=== PATIENT | male | born 1965 | race African-American/Black ===

== ENCOUNTER 2017-11-09 12:43 | Inpatient (IN) | payer MEDICAID, SELFPAY ==
[2017-11-09] VITALS (15 sets, daily range): BP systolic 138–160; BP diastolic 81–124; PULSE 89–120; RESP 12–96; TEMP 35.7–37.2; O2SAT 93–99; BMI 34.0; BMI 34.1; BMI 33.9
--- NOTE | 2017-11-09 13:37 | CT_ITS ---
STUDY: CT ABDOMEN AND PELVIS WITHOUT CONTRAST REASON FOR EXAM: Male, 51 years old. Weakness and abdominal pain. Polyuria. RADIATION DOSAGE (If Supplied By Facility): CTDIvol = ( 21.89 ) mGy, DLP = ( 1175.58 ) mGycm TECHNIQUE: Transaxial images were obtained from the dome of the diaphragm to the symphysis pubis without oral contrast, and without intravenous contrast. Sagittal and coronal images were reconstructed. Individualized dose optimization techniques were used for this CT. COMPARISON: None. FINDINGS: Calcified granulomas in the right lower lobe. The visualized portions of the heart are within normal limits. There is decreased attenuation of the liver consistent with steatosis. Normal gallbladder and extrahepatic biliary system. There is a benign calcified granuloma of the spleen. Normal pancreas. Normal bilateral adrenal glands. Normal right kidney. Normal left kidney. Normal visualized stomach. Normal small intestine. Normal colon. The appendix is visualized and appears normal. There is scattered atherosclerotic calcification of the abdominal aorta, without a demonstrated aneurysm. Normal inferior vena cava. Normal retroperitoneum. Normal urinary bladder. There are prostatic calcifications. There is a small umbilical hernia containing fat. Normal osseous structures. CT/Abdomen/Pelvis without Cont IMPRESSION: Fatty infiltration of the liver. Electronically Signed: Artemio Posada MD at 14:45 EST Tel [phone], Service support ,
--- NOTE | 2017-11-09 13:38 | ED.VISSUMM ---
- ER Visit Summary Date of Service: 11/09/17 Chief Complaint: [Nausea, abdominal pain] History of Present Illness: The patient is a 51 M [who presents the emergency department with dry mouth, abdominal pain right upper and right lower quadrant, nauseated after drinking juice. He has been peeing frequently. He has been constipated. He feels very weak and fatigued. He has a history of gastritis as a child but otherwise is healthy. He does not smoke or drink alcohol. His brother does have diabetes.] Physical Examination: [] Heart rate 120, blood pressure 139/89, respiratory rate 15, pulse ox 97%, temperature 96.2 WN WD NAD PERRL EOMI Dry mucous membranes NECK supple and nontender, no masses Regular tachycardic rhythm no murmur rub or gallop, no peripheral edema, symmetric radial pulses CTAB no respiratory distress ABDOMEN is soft and mild tenderness to the right upper and right lower quadrant, normal bowel sounds, no distension, no rebound or guarding SKIN is warm and dry no rashes Alert and Oriented x3, CN II-XII in tact, no motor or sensory deficits, gait normal No lymphadenopathy Test Results: [] Emergency Department Course and Treatment: [Patient presents with signs and symptoms concerning for new onset diabetes. Screening labs show an anion gap of 18 a bicarb of 16 and a blood sugar of 499. VBG was sent and pH is 7.20. CT abdomen and pelvis shows no acute process. Patient was given fluids. He was started on an insulin drip. He remained stable in the emergency department. Dr. [place] will evaluate the patient for admission] Treatment Plan: [] Disposition: [Admit] Impression: [DKA] This note was generated with [employer] dictation software. It may contain incorrect words, spelling, and punctuation that were not noted in review of the chart prior to signing ED Disposition - Plan for ED Patient: Chief Complaint: Weakness Referrals: Care Physician,No Primary [Primary Care Provider] -
[2017-11-09] MEDS: Ondansetron 4 MG/2 ML Vial IV (13:46)
[2017-11-09] MEDS: 0.9% Normal Saline 1,000 ML 1000 ML IV (13:46)
[2017-11-09 13:59] LABS: Absolute Lymphocyte Count 2.32 X10^3/ul (0.83-4.51); Absolute Neutrophil Count 4.8 X10^3/uL (2.0-7.7); Basophil# 0.04 X10^3/uL; Basophil% 0.5 % (0-1); Eosinophil# 0.03 X10^3/uL; Eosinophils% 0.4 % (0-5); Hematocrit 49.6 % (40-54); Hemoglobin 17.5 g/dl (13.0-16.5); Lymphocyte # 2.32 X10^3/ul (4.0); Lymphocyte % 29.4 % (19-41); Mean Corp Hgb Conc 35.3 g/gl (32-36); Mean Corpuscular Hgb 30.3 pg (27.0-32.0); Mean Platelet Vol. 13.3 fl (6.2-12.0); Monocyte# 0.64 X10^3/uL; Monocyte% 8.1 % (0-10); Neutrophil # 4.84 X10^3/uL (2.7-7.7); Neutrophil % 61.3 % (47-70); Platelet Count 166 K/mm3 (150-450); RBC Distribution Width CV 13.9 % (11.6-14.6); RBC Distribution Width SD 43.8 fl (35.1-43.9); Red Blood Count 5.77 M/mm3 (4.6-6.2); White Blood Count 7.9 K/mm3 (4.4-11.0)
[2017-11-09 14:00] LABS: Bacteria 0 SEEN /hpf (None Seen); Mucous, Urine 0 SEEN /hpf (<or=2+); Squamous Epithelial Cells - UA 0 SEEN /hpf (0-5); White Blood Cells 0 SEEN /hpf (0-5)
[2017-11-09 14:01] LABS: Color, Urine Yellow (Yellow); Glucose, Dipstick 1000 mg/dl (Normal); Leukocyte Esterase-Dipstick Negative /ul (Negative); Nitrite-Dipstick Negative (Negative); Occult Blood-Urine 50 /ul (Negative); Protein-Dipstick 30 mg/dl (Negative); Specific Gravity, Urine 1.015 (1.002-1.030); Urine Bilirubin Dipstick Negative (Negative); Urine Clarity Clear (Clear); Urine Urobilinogen Normal (Normal)
[2017-11-09 14:02] LABS: POSITIVE COUNT NO; POSITIVE DIFFERENTIAL NO; POSITIVE MORPHOLOGY NO
[2017-11-09 14:13] LABS: Red Blood Cells-Urine 0-5 SEEN /hpf (0-5)
[2017-11-09 14:14] LABS: Ketone-Dipstick 150 mg/dl (Negative)
[2017-11-09 14:19] LABS: ALB/GLOB Ratio 0.9 RATIO (0.9-2.4); AST(SGOT) 16 U/L (15-37); Alanine Aminotransfer ALT/SGPT 47 U/L (16-61); Albumin, Serum 3.9 g/dL (3.2-5.0); Alkaline Phosphatase 99 U/L (45-117); Anion Gap 18 (5-15); BUN 17 mg/dL (7-18); BUN/Creat Ratio 9.6 RATIO (10-20); Calcium,Total 9.6 mg/dL (8.5-10.1); Chloride 100 mmol/L (98-107); Creatinine, Serum 1.78 mg/dL (0.70-1.30); EST Glomerular Filtration Rate 43 mL/min (>60); Est Glom Filt Rate - Afr Amer 52 mL/min (>60); Estimated Creatinine Clearance 53.89 ml/min; Globulin 4.3 g/dL (2.2-4.2); Glucose 499 mg/dL (74-106); Lipase 248 U/L (73-393); Potassium 4.6 mmol/L (3.5-5.1); Protein, Total 8.2 g/dL (6.4-8.2); Sodium Level 134 mmol/L (136-145)
[2017-11-09 15:11] LABS: Blood Gas Specimen Type VEN; O2 Delivery Device Room Air; SITE OTHER; Time Given 1515; VBG BASE EXCESS -13 mmol/L (-1.0-3.5); VBG Bicarbonate 16 mmol/L (22-26); VBG Oxygen Content 17 mmol/L (23-33); VBG PO2 43 mmHg (25-40); VBG SO2 69 % (50-70); VBG pCO2 39.5 mmHg (41-51)
[2017-11-09] MEDS: 0.9% Normal Saline 1,000 ML 999 ML IV (15:15)
[2017-11-09 15:56] LABS: Bedside Glucose 434 mg/dL (70-110)
[2017-11-09 16:51] LABS: Bedside Glucose 417 mg/dL (70-110)
[2017-11-09 17:36] LABS: Anion Gap 17 (5-15); BUN 15 mg/dL (7-18); BUN/Creat Ratio 9.5 RATIO (10-20); Calcium,Total 8.9 mg/dL (8.5-10.1); Chloride 104 mmol/L (98-107); Creatinine, Serum 1.58 mg/dL (0.70-1.30); EST Glomerular Filtration Rate 49 mL/min (>60); Est Glom Filt Rate - Afr Amer 60 mL/min (>60); Estimated Creatinine Clearance 60.71 ml/min; Glucose 347 mg/dL (74-106); Potassium 4.2 mmol/L (3.5-5.1); Sodium Level 139 mmol/L (136-145)
[2017-11-09] MEDS: 0.9% Normal Saline 1,000 ML 500 ML IV (17:40)
[2017-11-09 17:42] LABS: Hemoglobin A1c 11.8 % (4.2-6.3)
[2017-11-09 18:35] LABS: M R Staph aureus DNA By PCR Negative (Negative); Probe Check PASS; Specimen Processing Control PASS
[2017-11-09 18:46] LABS: Bedside Glucose 278 mg/dL (70-110)
[2017-11-09 18:46] LABS: Bedside Glucose 330 mg/dL (70-110)
[2017-11-09] MEDS: Dext 5%-0.45% NS 1,000 ML 150 ML IV (20:03)
--- NOTE | 2017-11-09 20:04 | HP.PCM_ITS ---
Problem List (1) Extreme thirst Status: Acute (2) Generalized weakness Status: Acute History of Present Illness Date of Admission: 11/09/17 Chief Complaint: Extreme thirst, weakness The patient is a 51 year old M who was seen in the emergency room at [facility] with a chief complaint of extreme thirst and generalized weakness over the last 10 days. Patient also complained of frequent urination over the last 10 days. Finally, patient complained of the generalized abdominal pain. Patient denied any diarrhea, nausea, or vomiting. Patient does not follow-up with the physician on a regular basis Labs were performed in the emergency room, they were remarkable for blood sugar of 499, patient's CO2 was 16, anion gap was 18, serum creatinine was 1.78, BUN was 17, UA showed 150 ketones and glucose over thousand. Patient had an ABG performed, showed a pH of 7.2. Patient was felt to be in DKA, he was given an IV fluids and started on insulin drip. Will be admitted to ICU for further care Past Medical History Allergies No Known Allergies Allergy (Verified 11/09/17 12:46) Home Medications: Ambulatory Orders Medication Instructions Recorded NK [NK] 11/09/17 Surgical History: no surgical history Lives: Spouse/ Significant Other Smoking Status: Never smoker Tobacco Use: Non-smoker Alcohol: None Drugs: None - *Family History Sibling History Items: Diabetes Maternal History Items: Asthma Paternal History Items: Unknown Review of Systems Constitutional: Reports: Weakness, Fatigue. Denies: Anorexia, Chills, Fever, Night Sweats, Malaise, Weight Change Eyes: Denies: Blurred vision, Cataracts, Conjunctivae Inflammation, Double vision, Drainage HEENT: Denies: Difficulty Hearing, Difficulty Swallowing, Dysphasia, Ear Pain, Eye Pain, Hearing Changes, Nasal bleeding, Nasal Congestion, Post Nasal Drip Cardiovascular: Denies: Chest Pain, Claudication, Chest Pressure, Chest Tightness, Edema, Heaviness, Palpitations, Paroxysmal Noc. Dyspnea Respiratory: Denies: Cough, Hemoptysis, Pleuritic Pain, Shortness of Breath, Shortness of breath at rest, Shortness of breath upon exertion, Sputum production, Wheezing Gastrointestinal: Reports: Abdominal Pain. Denies: Constipation, Diarrhea, Hematemesis, Hematochezia, Nausea, Melena, Vomiting Genitourinary: Reports: Frequency. Denies: Dysuria, Hematuria, Hesitancy, Urgency Musculoskeletal: Denies: Back Pain, Foot Pain, Hand Pain, Joint Pain, Joint stiffness, Joint swelling, Joint Tenderness, Leg Pain Skin: Denies: Dryness, Jaundice, Pruritis, Rash Neurological: Denies: Balance problems, Blurred vision, Double vision, Slurred speech, Difficulty swallowing, Focal weakness, Headaches, Incoordination, Numbness, Tingling Psychiatric: Denies: Anxiety, Depression, Homicidal Ideations, Suicidal Ideations Endocrine: Denies: Change in Body Habitus, Heat/ Cold Intolerance, Polydipsia, Polyuria Hematologic/ Lymphatic: Denies: Adenopathy, Anemia, Easy Bruising, Easy Bleeding , Petechiae, Purpura VTE Information - Inpt Only VTE Present on Admission: No VTE Mechan Device Prophylaxis: None VTE Pharm Prophylaxis ordered?: Yes Patient Problems: Active and Suspected Problems Extreme thirst (Acute) Generalized weakness (Acute) - Physical Exam General: Alert, Oriented x3, Cooperative, No apparent distress, Well developed, Well nourished HEENT: Atraumatic, PERRLA, EOMI, Normocephalic Oral: Dry Mucosa Neck: Supple, No JVD, Negative Carotid Bruits, No Nuchal Rigidity, Trachea Midline, Thyroid Normal Size and Texture Lungs: Clear to auscultation, Normal air movement, No rhonchi, No wheeze, No rales Cardiovascular: Regular rate, Regular Rhythm, Normal S1, Normal S2, No murmurs, PMI Normal, No rub noted, No Gallop Abdomen: Bowel Sounds Present, Soft, Non Tender, Non-Distended, No hernias noted Extremities: No clubbing, No cyanosis, No edema, Capillary Refill Less than 3 Seconds Skin: No rashes, No breakdown Musculoskeletal: No Tenderness to Palpation of Joints or Extremities Neurological: Cranial nerves II-XII grossly intact, Neuro grossly intact, Muscle tone normal, Sensory exam intact to light touch and pain Psych/Mental Status: Normal Affect, Appropriate, Alert and oriented to time, place, person, mood and affect Vital Signs Temp Pulse Resp BP Pulse Ox 97.5 F L 106 H 18 140/86 H 95 11/09/17 18:00 11/09/17 19:00 11/09/17 19:00 11/09/17 19:00 11/09/17 19:00 Oxygen Delivery Method Room Air Weight: 113.398 kg Body Mass Index (BMI) 33.9 Finger Stick Blood Glucose 417 Intake and Output for Last 24 Hours 11/07/17 11/08/17 11/09/17 23:59 23:59 23:59 Intake Total 1000 / 1000 Balance 1000 / 1000 Laboratory Tests Past 24 Hrs 11/09/17 11/09/17 16:50 17:00 Sodium 139 Potassium 4.2 Chloride 104 Carbon Dioxide 18.0 L Anion Gap 17 H BUN 15 Creatinine 1.58 H Estim Creat Clear Calc 60.71 Est GFR (MDRD) Af Amer 60 Est GFR (MDRD) Non-Af 49 L BUN/Creatinine Ratio 9.5 L Glucose 347 H Calcium 8.9 MRSA (PCR) Negative POC Glucose 11/09/17 11/09/17 11/09/17 18:40 17:43 16:42 POC Glucose 278 H 330 H 417 H Assessment/Plan Active and Suspected Problems Extreme thirst (Acute) Generalized weakness (Acute) #1 acute diabetic ketoacidosis-new onset-patient will be admitted to ICU, insulin drip will be continued, blood sugars will be monitored as well as electrolytes, patient will be given IV fluids, pulmonary medicine will be consulted #2 acute kidney injury secondary to #1 IV fluids will be administered, labs will need rechecked #3 newly diagnosed type 2 diabetes patient will need education and follow-up Code Visit Inpatient E&M: 88207 Init Hosp L3
[2017-11-09 20:06] LABS: Bedside Glucose 248 mg/dL (70-110)
[2017-11-09 21:06] LABS: Bedside Glucose 236 mg/dL (70-110)
[2017-11-09 21:36] LABS: Anion Gap 13 (5-15); BUN 12 mg/dL (7-18); BUN/Creat Ratio 8.5 RATIO (10-20); Calcium,Total 8.5 mg/dL (8.5-10.1); Chloride 109 mmol/L (98-107); Creatinine, Serum 1.41 mg/dL (0.70-1.30); EST Glomerular Filtration Rate 56 mL/min (>60); Est Glom Filt Rate - Afr Amer 68 mL/min (>60); Estimated Creatinine Clearance 68.03 ml/min; Glucose 251 mg/dL (74-106); Potassium 3.8 mmol/L (3.5-5.1); Sodium Level 140 mmol/L (136-145)
[2017-11-09] MEDS: 0.9% NaCl Peripheral Flush Adult/Peds IV (22:12)
[2017-11-09] MEDS: Heparin Injection 5,000 UNITS/ML Syringe 5000 UNITS SC (22:13)
[2017-11-09 22:26] LABS: Bedside Glucose 256 mg/dL (70-110)
[2017-11-09 23:30] LABS: Bedside Glucose 271 mg/dL (70-110)
[2017-11-10] VITALS (12 sets, daily range): BP systolic 98–154; BP diastolic 54–92; PULSE 82–111; RESP 14–21; TEMP 36.6–37.1; O2SAT 93–100
[2017-11-10 00:21] LABS: Bedside Glucose 275 mg/dL (70-110)
[2017-11-10 01:31] LABS: Bedside Glucose 255 mg/dL (70-110)
[2017-11-10 02:01] LABS: Anion Gap 8 (5-15); BUN 11 mg/dL (7-18); Calcium,Total 8.4 mg/dL (8.5-10.1); Chloride 109 mmol/L (98-107); Creatinine, Serum 1.38 mg/dL (0.70-1.30); EST Glomerular Filtration Rate 58 mL/min (>60); Est Glom Filt Rate - Afr Amer 70 mL/min (>60); Estimated Creatinine Clearance 69.51 ml/min; Glucose 250 mg/dL (74-106); Potassium 3.6 mmol/L (3.5-5.1); Sodium Level 140 mmol/L (136-145)
[2017-11-10 02:16] LABS: Bedside Glucose 236 mg/dL (70-110)
[2017-11-10] MEDS: Dext 5%-0.45% NS 1,000 ML 150 ML IV (03:03)
[2017-11-10] MEDS: 0.9% NaCl Peripheral Flush Adult/Peds IV ×2 (03:04→05:14)
[2017-11-10 03:11] LABS: Bedside Glucose 247 mg/dL (70-110)
[2017-11-10 04:21] LABS: Bedside Glucose 232 mg/dL (70-110)
[2017-11-10 05:11] LABS: Bedside Glucose 194 mg/dL (70-110)
[2017-11-10 05:37] LABS: Anion Gap 8 (5-15); BUN 9 mg/dL (7-18); BUN/Creat Ratio 6.6 RATIO (10-20); Calcium,Total 8.1 mg/dL (8.5-10.1); Chloride 108 mmol/L (98-107); Creatinine, Serum 1.36 mg/dL (0.70-1.30); EST Glomerular Filtration Rate 59 mL/min (>60); Est Glom Filt Rate - Afr Amer 71 mL/min (>60); Estimated Creatinine Clearance 70.53 ml/min; Glucose 208 mg/dL (74-106); Potassium 3.3 mmol/L (3.5-5.1); Sodium Level 139 mmol/L (136-145)
[2017-11-10 06:07] LABS: Bedside Glucose 245 mg/dL (70-110)
--- NOTE | 2017-11-10 07:48 | PCM.PN.HOSP ---
Patient Problems: Active and Suspected Problems Extreme thirst (Acute) Generalized weakness (Acute) Subjective: Patient was seen and examined. Admitted last night with DKA and managed in the ICU. No acute events overnight. Has been closed ?2. Denies any headache or dizziness or shortness of breath. Denies any history of diabetes, positive family history of diabetes in his brother and his father. Objective: Physical Exam General: Alert, Oriented x3, Cooperative, No apparent distress, Well developed, Well nourished HEENT: Atraumatic, PERRLA, EOMI, Normocephalic Oral: Dry Mucosa Neck: Supple, No JVD, Negative Carotid Bruits, No Nuchal Rigidity, Trachea Midline, Thyroid Normal Size and Texture Lungs: Clear to auscultation, Normal air movement, No rhonchi, No wheeze, No rales Cardiovascular: Regular rate, Regular Rhythm, Normal S1, Normal S2, No murmurs, PMI Normal, No rub noted, No Gallop Abdomen: Bowel Sounds Present, Soft, Non Tender, Non-Distended, No hernias noted Extremities: No clubbing, No cyanosis, No edema, Capillary Refill Less than 3 Seconds Skin: No rashes, No breakdown Musculoskeletal: No Tenderness to Palpation of Joints or Extremities Neurological: Cranial nerves II-XII grossly intact, Neuro grossly intact, Muscle tone normal, Sensory exam intact to light touch and pain Psych/Mental Status: Normal Affect, Appropriate, Alert and oriented to time, place, person, mood and affect Vitals/I&O's: Vital Signs Temp Pulse Resp BP Pulse Ox 97.8 F 94 16 154/82 H 96 11/10/17 00:00 11/10/17 07:00 11/10/17 07:00 11/10/17 07:00 11/10/17 07:00 Oxygen Delivery Method Room Air Weight: 116.4 kg Body Mass Index (BMI) 33.9 Finger Stick Blood Glucose 194 Intake and Output for Last 24 Hours 11/08/17 11/09/17 11/10/17 23:59 23:59 23:59 Intake Total 1000 / 1000 2862.5 / 2862.5 Balance 1000 / 1000 2862.5 / 2862.5 Laboratory Results 11/09/17 16:42: POC Glucose 417 H 11/09/17 16:50: MRSA (PCR) Negative 11/09/17 17:00: Sodium 139, Potassium 4.2, Chloride 104, Carbon Dioxide 18.0 L, Anion Gap 17 H, BUN 15, Creatinine 1.58 H, Estim Creat Clear Calc 60.71, Est GFR (MDRD) Af Amer 60, Est GFR (MDRD) Non-Af 49 L, BUN/Creatinine Ratio 9.5 L, Glucose 347 H, Calcium 8.9 11/09/17 17:43: POC Glucose 330 H 11/09/17 18:40: POC Glucose 278 H 11/09/17 19:47: POC Glucose 248 H 11/09/17 20:56: POC Glucose 236 H 11/09/17 21:00: Sodium 140, Potassium 3.8, Chloride 109 H, Carbon Dioxide 18.0 L, Anion Gap 13, BUN 12, Creatinine 1.41 H, Estim Creat Clear Calc 68.03, Est GFR (MDRD) Af Amer 68, Est GFR (MDRD) Non-Af 56 L, BUN/Creatinine Ratio 8.5 L, Glucose 251 H, Calcium 8.5 11/09/17 22:09: POC Glucose 256 H 11/09/17 23:04: POC Glucose 271 H 11/10/17 00:08: POC Glucose 275 H 11/10/17 01:09: POC Glucose 255 H 11/10/17 01:10: Sodium 140, Potassium 3.6, Chloride 109 H, Carbon Dioxide 23.0, Anion Gap 8, BUN 11, Creatinine 1.38 H, Estim Creat Clear Calc 69.51, Est GFR (MDRD) Af Amer 70, Est GFR (MDRD) Non-Af 58 L, BUN/Creatinine Ratio 8.0 L, Glucose 250 H, Calcium 8.4 L 11/10/17 02:13: POC Glucose 236 H 11/10/17 03:01: POC Glucose 247 H 11/10/17 04:13: POC Glucose 232 H 11/10/17 05:04: POC Glucose 194 H 11/10/17 05:10: Sodium 139, Potassium 3.3 L, Chloride 108 H, Carbon Dioxide 23.0, Anion Gap 8, BUN 9, Creatinine 1.36 H, Estim Creat Clear Calc 70.53, Est GFR (MDRD) Af Amer 71, Est GFR (MDRD) Non-Af 59 L, BUN/Creatinine Ratio 6.6 L, Glucose 208 H, Calcium 8.1 L 11/10/17 06:00: POC Glucose 245 H Current Medications Dextrose (D50w Syringe) 0 gm IV X1 PRN; Protocol PRN Reason: Hypoglycemia Dextrose (D50w Syringe) 0 gm IV X1 PRN; Protocol PRN Reason: HYPOGLYCEMIA Dextrose (D50w Syringe) 0 gm IV X1 PRN; Protocol PRN Reason: Hypoglycemia Glucagon () 1 mg IM .X1 PRN PRN Reason: Hypoglycemia Heparin Sodium (Porcine) () 5,000 units SC BID IESHA Last Admin: 11/09/17 22:13 Dose: 5,000 units Potassium Chloride 40 meq/ (Sodium Chloride) 1,020 mls @ 100 mls/hr IV .[id number] IESHA Insulin Aspart (Novolog Flexpen (Bkc)) 0 units SC ACHS IESHA PRN Reason: Protocol Insulin Detemir (Levemir (Bkc)) 10 units SC QHS IESHA Sodium Chloride () 5 - 30 ml IV UD PRN PRN Reason: SALINE FLUSH Last Admin: 11/10/17 05:14 Dose: 10 ml Assessment/Plan Active and Suspected Problems Extreme thirst (Acute) Generalized weakness (Acute) 51-year-old male with no significant past medical history is admitted with DKA, managed in ICU on insulin drip, currently off insulin drip, anion gap has been closed ?2. 1. Acute diabetic ketoacidosis, newly diagnosed DM, positive family history of DM, been on insulin drip overnight, off now, anion gap is closed, will continue to monitor. 2. Newly diagnosed type II DM, HbA1c is 11.8, was given 10 units of Levemir at this morning, will continue with 10 units of Levemir at night with medium to high dose insulin sliding scale, will continue IV fluid hydration, will need loss of diabetic education, will need metformin as well as insulin before discharge. reclamation worker to assist with medications prior to discharge so we can be sure patient will have medications on discharge. Will check lipid profile in am. 3. Acute kidney injury secondary to dehydration from DKA, improved, baseline creatinine appears to be around 1.3, admitted with creatinine of 1.78, will continue on IV fluids, BMP in a.m. 4. Hypokalemia, secondary to DKA, will replace, recheck in a.m., would also check for hypomagnesemia 5. DVT Prophylaxis with heparin subcu Code Visit Inpatient E&M: 35309 Subs Hosp L2
--- NOTE | 2017-11-10 07:58 | PN_ITS ---
Patient Problems: Active and Suspected Problems Extreme thirst (Acute) Generalized weakness (Acute) Subjective: Patient was seen and examined. Admitted last night with DKA and managed in the ICU. No acute events overnight. Has been closed ?2. Denies any headache or dizziness or shortness of breath. Denies any history of diabetes, positive family history of diabetes in his brother and his father. Objective: Physical Exam General: Alert, Oriented x3, Cooperative, No apparent distress, Well developed, Well nourished HEENT: Atraumatic, PERRLA, EOMI, Normocephalic Oral: Dry Mucosa Neck: Supple, No JVD, Negative Carotid Bruits, No Nuchal Rigidity, Trachea Midline, Thyroid Normal Size and Texture Lungs: Clear to auscultation, Normal air movement, No rhonchi, No wheeze, No rales Cardiovascular: Regular rate, Regular Rhythm, Normal S1, Normal S2, No murmurs, PMI Normal, No rub noted, No Gallop Abdomen: Bowel Sounds Present, Soft, Non Tender, Non-Distended, No hernias noted Extremities: No clubbing, No cyanosis, No edema, Capillary Refill Less than 3 Seconds Skin: No rashes, No breakdown Musculoskeletal: No Tenderness to Palpation of Joints or Extremities Neurological: Cranial nerves II-XII grossly intact, Neuro grossly intact, Muscle tone normal, Sensory exam intact to light touch and pain Psych/Mental Status: Normal Affect, Appropriate, Alert and oriented to time, place, person, mood and affect Vitals/I&O's: Vital Signs Temp Pulse Resp BP Pulse Ox 97.8 F 94 16 154/82 H 96 11/10/17 00:00 11/10/17 07:00 11/10/17 07:00 11/10/17 07:00 11/10/17 07:00 Oxygen Delivery Method Room Air Weight: 116.4 kg Body Mass Index (BMI) 33.9 Finger Stick Blood Glucose 194 Intake and Output for Last 24 Hours 11/08/17 11/09/17 11/10/17 23:59 23:59 23:59 Intake Total 1000 / 1000 2862.5 / 2862.5 Balance 1000 / 1000 2862.5 / 2862.5 Laboratory Results 11/09/17 16:42: POC Glucose 417 H 11/09/17 16:50: MRSA (PCR) Negative 11/09/17 17:00: Sodium 139, Potassium 4.2, Chloride 104, Carbon Dioxide 18.0 L, Anion Gap 17 H, BUN 15, Creatinine 1.58 H, Estim Creat Clear Calc 60.71, Est GFR (MDRD) Af Amer 60, Est GFR (MDRD) Non-Af 49 L, BUN/Creatinine Ratio 9.5 L, Glucose 347 H, Calcium 8.9 11/09/17 17:43: POC Glucose 330 H 11/09/17 18:40: POC Glucose 278 H 11/09/17 19:47: POC Glucose 248 H 11/09/17 20:56: POC Glucose 236 H 11/09/17 21:00: Sodium 140, Potassium 3.8, Chloride 109 H, Carbon Dioxide 18.0 L , Anion Gap 13, BUN 12, Creatinine 1.41 H, Estim Creat Clear Calc 68.03, Est GFR (MDRD) Af Amer 68, Est GFR (MDRD) Non-Af 56 L, BUN/Creatinine Ratio 8.5 L, Glucose 251 H, Calcium 8.5 11/09/17 22:09: POC Glucose 256 H 11/09/17 23:04: POC Glucose 271 H 11/10/17 00:08: POC Glucose 275 H 11/10/17 01:09: POC Glucose 255 H 11/10/17 01:10: Sodium 140, Potassium 3.6, Chloride 109 H, Carbon Dioxide 23.0, Anion Gap 8, BUN 11, Creatinine 1.38 H, Estim Creat Clear Calc 69.51, Est GFR ( MDRD) Af Amer 70, Est GFR (MDRD) Non-Af 58 L, BUN/Creatinine Ratio 8.0 L, Glucose 250 H, Calcium 8.4 L 11/10/17 02:13: POC Glucose 236 H 11/10/17 03:01: POC Glucose 247 H 11/10/17 04:13: POC Glucose 232 H 11/10/17 05:04: POC Glucose 194 H 11/10/17 05:10: Sodium 139, Potassium 3.3 L, Chloride 108 H, Carbon Dioxide 23.0 , Anion Gap 8, BUN 9, Creatinine 1.36 H, Estim Creat Clear Calc 70.53, Est GFR ( MDRD) Af Amer 71, Est GFR (MDRD) Non-Af 59 L, BUN/Creatinine Ratio 6.6 L, Glucose 208 H, Calcium 8.1 L 11/10/17 06:00: POC Glucose 245 H Current Medications Dextrose (D50w Syringe) 0 gm IV X1 PRN; Protocol PRN Reason: Hypoglycemia Dextrose (D50w Syringe) 0 gm IV X1 PRN; Protocol PRN Reason: HYPOGLYCEMIA Dextrose (D50w Syringe) 0 gm IV X1 PRN; Protocol PRN Reason: Hypoglycemia Glucagon () 1 mg IM .X1 PRN PRN Reason: Hypoglycemia Heparin Sodium (Porcine) () 5,000 units SC BID IESHA Last Admin: 11/09/17 22:13 Dose: 5,000 units Potassium Chloride 40 meq/ (Sodium Chloride) 1,020 mls @ 100 mls/hr IV .[id number] IESHA Insulin Aspart (Novolog Flexpen (Bkc)) 0 units SC ACHS IESHA PRN Reason: Protocol Insulin Detemir (Levemir (Bkc)) 10 units SC QHS IESHA Sodium Chloride () 5 - 30 ml IV UD PRN PRN Reason: SALINE FLUSH Last Admin: 11/10/17 05:14 Dose: 10 ml Assessment/Plan Active and Suspected Problems Extreme thirst (Acute) Generalized weakness (Acute) 51-year-old male with no significant past medical history is admitted with DKA, managed in ICU on insulin drip, currently off insulin drip, anion gap has been closed ?2. 1. Acute diabetic ketoacidosis, newly diagnosed DM, positive family history of DM, been on insulin drip overnight, off now, anion gap is closed, will continue to monitor. 2. Newly diagnosed type II DM, HbA1c is 11.8, was given 10 units of Levemir at this morning, will continue with 10 units of Levemir at night with medium to high dose insulin sliding scale, will continue IV fluid hydration, will need loss of diabetic education, will need metformin as well as insulin before discharge. bee worker to assist with medications prior to discharge so we can be sure patient will have medications on discharge. Will check lipid profile in am. 3. Acute kidney injury secondary to dehydration from DKA, improved, baseline creatinine appears to be around 1.3, admitted with creatinine of 1.78, will continue on IV fluids, BMP in a.m. 4. Hypokalemia, secondary to DKA, will replace, recheck in a.m., would also check for hypomagnesemia 5. DVT Prophylaxis with heparin subcu Code Visit Inpatient E&M: 88133 Subs Hosp L2
[2017-11-10] MEDS: Potassium Chloride 40 MEQ in 0.9% Normal Saline 1,000 ML 100 MEQ IV ×2 (08:05→20:29)
--- NOTE | 2017-11-10 10:28 | CASEMGMT ---
Addendum entered by Flory Venegas 11/10/17 10:57: In-Network PCPs according to [facility] website: [facility] Attempted to set up appointment for the patient, but was sent to [facility]. Patient received list with contact numbers and states he will schedule an appointment. Original Note: FELICITY LARSEN Assessment complete. See assessment link. Patient is a new diabetic. Dietary consult has been ordered by physician. I spoke with Irene from Dietary Services who states she will discuss case with dietary staff and see if patient may be considered for referral to outpatient diabetes education. Patient does not have a PCP. I provided a list of in-network PCPs to the patient. Appointment was scheduled with Guillermina Lozada at [facility] for at 0900. Patient aware and agreeable. Disposition Plan: Return home. Follow-up with new PCP and endocrinology.
[2017-11-10 11:36] LABS: Bedside Glucose 438 mg/dL (70-110)
[2017-11-10 16:57] LABS: Bedside Glucose 343 mg/dL (70-110)
[2017-11-10 19:56] LABS: Anion Gap 9 (5-15); BUN 8 mg/dL (7-18); BUN/Creat Ratio 5.9 RATIO (10-20); Calcium,Total 8.4 mg/dL (8.5-10.1); Chloride 107 mmol/L (98-107); Creatinine, Serum 1.35 mg/dL (0.70-1.30); EST Glomerular Filtration Rate 59 mL/min (>60); Est Glom Filt Rate - Afr Amer 71 mL/min (>60); Estimated Creatinine Clearance 71.05 ml/min; Glucose 435 mg/dL (74-106); Potassium 4.7 mmol/L (3.5-5.1); Sodium Level 137 mmol/L (136-145)
[2017-11-10] MEDS: Heparin Injection 5,000 UNITS/ML Syringe 5000 UNITS SC (22:51)
[2017-11-10 23:01] LABS: Bedside Glucose 352 mg/dL (70-110)
[2017-11-11 03:47] VITALS: BP 110/61; PULSE 85; RESP 18; TEMP 36.9; O2SAT 100
[2017-11-11] MEDS: Potassium Chloride 40 MEQ in 0.9% Normal Saline 1,000 ML 100 MEQ IV (07:07)
[2017-11-11 07:56] VITALS: BP 142/83; PULSE 101; RESP 16; TEMP 36.8; O2SAT 97
[2017-11-11] MEDS: Heparin Injection 5,000 UNITS/ML Syringe 5000 UNITS SC (07:57)
[2017-11-11 08:21] LABS: Bedside Glucose 288 mg/dL (70-110)
--- NOTE | 2017-11-11 10:03 | PCM.DC ---
- Discharge Diagnoses Current Active Problems: Current Active and Chronic Problems Generalized weakness (Acute) Extreme thirst (Acute) Reason(s) for Visit for Discharge Instructions: DKA You will use the following diet at home:: Cardiac Your food should be the consistency of: Regular Your liquids should be the consistency of: Regular/Thin Discharge Activity: Return to Normal Activity Additional Instructions: Continue to monitor your blood sugar 4x/day - before meals and at bedtime. Follow-up with the teacher theater arts and early childhood educator aide as well as endocrinology team. Take all your insulin. Allergies/Adverse Reactions: Allergies No Known Allergies Allergy (Verified 11/09/17 12:46) Medications to take at Discharge Insulin Aspart [Novolog Flexpen (BKC)] 2 units SC TIDCM #1 flexpen 11/11/17 Insulin Detemir [Levemir FlexPen] 10 units SC QHS #1 insuln.pen 11/11/17 Metformin HCl 500 mg PO DAILY #30 tab 11/11/17 The following prescriptions were given: Insulin Detemir [Levemir FlexPen] 10 units SC QHS #1 insuln.pen Metformin HCl 500 mg PO DAILY #30 tab Insulin Aspart [Novolog Flexpen (BKC)] 2 units SC TIDCM #1 flexpen Orders to be completed after discharge: Basic Metabolic Profile (BMP) Location: Laboratory Glucometer Location: None Selected Primary Care Physician: Care Physician,No Primary [Primary Care Provider] - Please follow up with your Primary Care Physician in: in 1 week Please Follow Up With: Edel Lozada NP-C When: Thursday Proposed Discharge Date: 11/11/17
--- NOTE | 2017-11-11 10:11 | DCINST_ITS ---
- Discharge Diagnoses Current Active Problems: Current Active and Chronic Problems Generalized weakness (Acute) Extreme thirst (Acute) Reason(s) for Visit for Discharge Instructions: DKA You will use the following diet at home:: Cardiac Your food should be the consistency of: Regular Your liquids should be the consistency of: Regular/Thin Discharge Activity: Return to Normal Activity Additional Instructions: Continue to monitor your blood sugar 4x/day - before meals and at bedtime. Follow-up with the student development dean and rn diabetes educator as well as endocrinology team. Take all your insulin. Allergies/Adverse Reactions: Allergies No Known Allergies Allergy (Verified 11/09/17 12:46) Medications to take at Discharge Insulin Aspart [Novolog Flexpen (BKC)] 2 units SC TIDCM #1 flexpen 11/11/17 Insulin Detemir [Levemir FlexPen] 10 units SC QHS #1 insuln.pen 11/11/17 Metformin HCl 500 mg PO DAILY #30 tab 11/11/17 The following prescriptions were given: Insulin Detemir [Levemir FlexPen] 10 units SC QHS #1 insuln.pen Metformin HCl 500 mg PO DAILY #30 tab Insulin Aspart [Novolog Flexpen (BKC)] 2 units SC TIDCM #1 flexpen Orders to be completed after discharge: Basic Metabolic Profile (BMP) Location: Laboratory Glucometer Location: None Selected Primary Care Physician: Care Physician,No Primary [Primary Care Provider] - Please follow up with your Primary Care Physician in: in 1 week Please Follow Up With: Edel Lozada NP-C When: Thursday Proposed Discharge Date: 11/11/17
[2017-11-11 10:42] LABS: Anion Gap 12 (5-15); BUN 7 mg/dL (7-18); BUN/Creat Ratio 5.7 RATIO (10-20); Calcium,Total 8.1 mg/dL (8.5-10.1); Chloride 103 mmol/L (98-107); Creatinine, Serum 1.22 mg/dL (0.70-1.30); EST Glomerular Filtration Rate 66 mL/min (>60); Est Glom Filt Rate - Afr Amer 80 mL/min (>60); Estimated Creatinine Clearance 78.62 ml/min; Glucose 368 mg/dL (74-106); Potassium 4.3 mmol/L (3.5-5.1); Sodium Level 137 mmol/L (136-145)
[2017-11-11 11:55] LABS: Bedside Glucose 422 mg/dL (70-110)
--- NOTE | 2017-11-20 09:49 | PCM.DC.SUM ---
Discharge Date and Diagnosis Date of Admission: 11/09/17 Date of Discharge: 11/20/17 - Primary Discharge Diagnosis DKA Type 2 DM, newly diagnosed - Secondary Discharge Diagnosis None Hospital Course and Treatment Imaging Results: Clinical Impression(s) from Imaging Studies Abdomen/Pelvis CT 11/09/17 13:37 IMPRESSION: Fatty infiltration of the liver. Electronically Signed: Artemio Posada MD at 14:45 EST Tel [phone], Service support , None Operations: None Procedures: None Summary of Care Provided: 51-year-old male with no significant past medical history is admitted with DKA, managed in ICU on insulin drip. 1. Acute diabetic ketoacidosis in a newly diagnosed DM, positive family history of DM, started on insulin and metformin, hospital administrator consulted, will follow-up with endocrinology in out patient. Weight loss recommended, advised to keep a log of his blood sugars. Materials and glucometer prescribed. 2. Newly diagnosed type II DM, HbA1c is 11.8, started on Lantus 10units QHS, as well as metformin. 3. Acute kidney injury secondary to dehydration from DKA, resolved with IV fluids. 4. Hypokalemia, secondary to DKA, replaced 5. Fatty liver, incidentally noted on imaging on admission. Discharge Diet: Low fat/ Low Cholesterol, 2000 Calorie Control Diet, 2000 mg Sodium Diet Discharge Activity: Return to Normal Activity Home Medications: Medications to take at Discharge Insulin Aspart [Novolog Flexpen (BKC)] 2 units SC TIDCM #1 flexpen 11/11/17 Insulin Detemir [Levemir FlexPen] 10 units SC QHS #1 insuln.pen 11/11/17 Metformin HCl 500 mg PO DAILY #30 tab 11/11/17 Following Prescrptions Were Given to Patient: Insulin Detemir [Levemir FlexPen] 10 units SC QHS #1 insuln.pen Metformin HCl 500 mg PO DAILY #30 tab Insulin Aspart [Novolog Flexpen (BKC)] 2 units SC TIDCM #1 flexpen Other Amb Orders: Basic Metabolic Profile (BMP) Location: Laboratory Glucometer Location: None Selected Primary Care Physician: Care Physician,No Primary [Primary Care Provider] - Please follow up with your Primary Care Physician in: in 1 week Please Follow Up With: Edel Lozada NP-C When: Thursday Disposition: Home Minutes spent on discharge:: 25 Patient Condition:: Stable Meaningful Use Info Meaningful Use Diagnoses (Choose all that apply): None applicable Code Visit Inpatient E&M: 78691 Disch Hosp
== END 2017-11-11 13:30 | disposition home or self-care (01) | DRG 294 ==
LOC: ED 14:59 → ICU 16:48 → MS2 11-11 10:30
PROVIDERS: Admitting Provider Internal Medicine; Emergency Provider Emergency Medicine; Visit Provider Internal Medicine
DX: E11.10 Type 2 diabetes mellitus with ketoacidosis without coma (principal); N17.9 Acute kidney failure, unspecified; E86.0 Dehydration; Z83.3 Family history of diabetes mellitus; E87.6 Hypokalemia
CPT/HCPCS: 36415; 74176; 80048; 80053; 81001; 82803; 82962; 83036; 83690; 83735; 85025; 87641; 97802; 99282; J7030; A4216; J2405; J7799

== ENCOUNTER 2021-11-18 10:13 | Outpatient (CLI) | payer MEDICAID, SELFPAY ==
--- NOTE | 2021-11-18 10:21 | EKG12_ITS ---
Test Reason : ROUTINE Blood Pressure : / mmHG Vent. Rate : 066 BPM Atrial Rate : 066 BPM P-R Int : 130 ms QRS Dur : 080 ms QT Int : 364 ms P-R-T Axes : 062 -63 -26 degrees QTc Int : 381 ms Sinus rhythm with occasional Premature ventricular complexes Left axis deviation Nonspecific ST and T wave abnormality Abnormal ECG Confirmed by DAVON KENNEDY, KARLOS ([id number]), copy editor MARCO GARCIA ([id number]) on 11/19/2021 1:00:36 PM Referred By: Trish Prakash Confirmed By:KARLOS MAYS MD
== END 2021-11-18 23:59 | disposition home or self-care (01) ==
LOC: PSN 10:19
PROVIDERS: PCP Nurse Practitioner Adult Health; Referring Provider Nurse Practitioner Adult Health; Visit Provider Nurse Practitioner Adult Health
DX: R00.2 Palpitations (principal)
CPT/HCPCS: 93005

== ENCOUNTER 2024-07-05 23:03 | Emergency (ER) | payer MEDICAID, SELFPAY ==
[2024-07-05 23:03] VITALS: BP 194/105; PULSE 95; RESP 18; TEMP 36.6; O2SAT 99
[2024-07-05 23:18] VITALS: BMI 36.3
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
[2024-07-05] MEDS: oxyCODONE 5 MG Tablet PO (23:37)
[2024-07-06 00:18] VITALS: BP 155/95; PULSE 67; RESP 18; TEMP 36.6; O2SAT 97
== END 2024-07-06 00:34 | disposition home or self-care (01) ==
PROVIDERS: Emergency Provider Emergency Medicine; PCP Nurse Practitioner Adult Health; Visit Provider Emergency Medicine
DX: S86.111A Strain of other muscle(s) and tendon(s) of posterior muscle group at lower leg level, right leg, initial encounter (principal); E11.9 Type 2 diabetes mellitus without complications; X58.XXXA Exposure to other specified factors, initial encounter
CPT/HCPCS: 73590; 99283